=== PATIENT | male | born 1985 | race American Indian/Alaskan Native ===

== ENCOUNTER 2018-09-13 11:40 | Emergency (ER) | payer SELFPAY ==
[2018-09-13 11:59] VITALS: BP 116/69
--- NOTE | 2018-09-13 12:34 | Emergency Department Report ---
Blank Doc - Documentation Documentation: When I picked up the patient's chart see him, I was told that the patient went into the bathroom. When I checked again, I was notified that the patient eloped from the emergency department. However given the police report and the triage information, the police will once again be contacted to search for this individual, and if found, be brought back to the emergency department.
== END 2018-09-13 12:30 | disposition left against medical advice (07) ==
LOC: ED 11:40
DX: M54.5 Low back pain (principal); Z53.21 Procedure and treatment not carried out due to patient leaving prior to being seen by health care provider